=== PATIENT | female | born 1965 | race Asian ===

== ENCOUNTER → 2020-12-13 | Outpatient (CLI) | payer SELFPAY | END | disposition home or self-care (01) | LOC: LABPV 07:52 | PROVIDERS: ATTEND Family Medicine | DX: Z00.00 Encounter for general adult medical examination without abnormal findings (principal); Z11.3 Encounter for screening for infections with a predominantly sexual mode of transmission | CPT/HCPCS: 86480; 86592; 87491; 87591 ==